=== PATIENT | male | born 1950 | race Caucasian/White ===

== ENCOUNTER → 2017-07-20 | Outpatient (CLI) | payer BC, MEDICARE, OTHER ==
[~2017-07-20] VITALS: Ht 175.3 cm; Wt 81.8 kg
[~2017-07-20] MED LIST: ATOR40TA78 PO; BUPIVACAINE/PF 0.5% ONE; CHOL10003 PO; CIME200T6 PO; EPINEPHRINE 1 MG/ML, 1ML ONE; LACTATED RINGERS 1,000 ML IV SCH; OMEG1CAP6 PO; PANT40TA3 PO; PROPOFOL 10 MG/ML, 20ML ONE; ROCURONIUM 10 MG/ML,10ML ONE; SUCCINYLCHOLINE 20 MG/ML, 10ML ONE
[2017-07-20 06:43] VITALS: BP 145/88
== END | disposition home or self-care (01) ==
LOC: OUT 06:08 → STAR 07:00 → EDSTATUS 07:30 → OUT 09:00
PROVIDERS: ATTEND Surgery
DX: Z02.9 Encounter for administrative examinations, unspecified (principal)
CPT/HCPCS: J0171; J2704; J3490; J0330; J7120

== ENCOUNTER 2019-07-07 17:21 | Emergency (ER) | payer OTHER ==
[~2019-07-07] VITALS: Ht 172.7 cm; Wt 82.1 kg
[~2019-07-07 17:21] MED LIST changes: -BUPIVACAINE/PF 0.5% ONE; -EPINEPHRINE 1 MG/ML, 1ML ONE; -LACTATED RINGERS 1,000 ML IV SCH; -PROPOFOL 10 MG/ML, 20ML ONE; -ROCURONIUM 10 MG/ML,10ML ONE; -SUCCINYLCHOLINE 20 MG/ML, 10ML ONE
--- NOTE | 2019-07-07 18:34 | NUR ---
TO [facility] FROM [facility]
--- NOTE | 2019-07-07 19:09 | NUR ---
PT WITH 'CHEST DISCOMFORT' THAT STARTED TODAY AND HAS BEEN INTERMITTANT, PAIN RATED 4/10. DENIES N/V, SOB, SYNCOPE. 'TIGHTNESS' IN QUALITY, WITH 'HEARTBURN' SENSATION. HX HIGH CHOLESTEROL, GASTRIC REFLUX, BARRETTS ESOPH.
[2019-07-07 19:30] LABS: BASOPHILS # (AUTO) 0.06 x10^3/uL (0-0.1); BASOPHILS % (AUTO) 1 % (0-1); EOSINOPHILS # (AUTO) 0.12 x10^3/uL (0-0.4); EOSINOPHILS % (AUTO) 1 % (1-7); LYMPHOCYTES # (AUTO) 2.28 x10^3/uL (1-3.4); LYMPHOCYTES % (AUTO) 28 % (22-44); MD NO; MEAN CORPUSCULAR HEMOGLOBIN 31.8 pg (27.5-34.5); MEAN CORPUSCULAR HGB CONC 33.5 g/dL (33.2-36.2); MEAN CORPUSCULAR VOLUME 94.9 fL (81-97); MONOCYTES # (AUTO) 0.53 x10^3/uL (0.2-0.8); MONOCYTES % (AUTO) 6 % (2-9); NEUTROPHILS # (AUTO) 5.24 x10^3/uL (1.8-6.8); NEUTROPHILS % (AUTO) 64 % (42-75); PLATELET COUNT 174 x10^3/uL (130-400); RED BLOOD COUNT 5.48 x10^6/uL (4.38-5.82); RED CELL DISTRIBUTION WIDTH 12.6 % (9.4-14.8)
[2019-07-07] MEDS ORDERED: MAALOX/HYOSCYAMINE/LIDOCAINE 45 ML BTL PO ONE (19:30)
[2019-07-07] MEDS ORDERED: MAALOX/HYOSCYAMINE/LIDOCAINE 45 ML BTL ONE (19:33)
[2019-07-07 19:36] LABS: ALANINE AMINOTRANSFERASE 103 U/L (12-78); ALBUMIN 3.9 g/dL (3.4-5.0); ANION GAP 5 mmol/L (5-15); CALCIUM 9.2 mg/dL (8.5-10.1); CHLORIDE 105 mmol/L (98-107); CREATININE 1.25 mg/dL (0.7-1.3)
[2019-07-07 19:41] LABS: ALKALINE PHOSPHATASE 66 U/L (45-117); BILIRUBIN,TOTAL 1.2 mg/dL (0.2-1.0); TOTAL PROTEIN 7.5 g/dL (6.4-8.2); TROPONIN I < 0.015 ng/mL (0.000-0.045)
[2019-07-07 20:08] VITALS: BP 132/79
--- NOTE | 2019-07-07 20:22 | NUR ---
PT AMBULATORY TO THE BATHROOM WITH STEADY GAIT. PT STATES "THE DISCOMFORT IS DIMINISHED" WHEN ASKED HOW THE GI COCKTAIL AFFECTED HIM
== END 2019-07-07 21:32 | disposition home or self-care (01) ==
LOC: ED 21:00
DX: R07.89 Other chest pain (principal); K21.0 Gastro-esophageal reflux disease with esophagitis; E78.5 Hyperlipidemia, unspecified
CPT/HCPCS: 36415; 71045; 80053; 84484; 85025; 93005; 99284